=== PATIENT | male | born 1960 ===

== ENCOUNTER 2019-01-07 11:27 | Emergency (ER) | payer OTHER ==
[~2019-01-07] VITALS: Ht 165.1 cm; Wt 92.5 kg
[2019-01-07] MEDS ORDERED: KETO10TA2 PO (17:29)
[2019-01-07] MEDS ORDERED: ORPHENADRINE C100 MG PO (17:29)
== END 2019-01-07 18:07 | disposition home or self-care (01) ==
LOC: ER 11:27
DX: S40.011A Contusion of right shoulder, initial encounter (principal); M75.31 Calcific tendinitis of right shoulder; W18.09XA Striking against other object with subsequent fall, initial encounter; Y93.89 Activity, other specified; Y92.018 Other place in single-family (private) house as the place of occurrence of the external cause; Y99.8 Other external cause status